=== PATIENT | female | born 1985 | race Caucasian/White ===

== ENCOUNTER → 2021-05-21 | Outpatient (CLI) | payer OTHER ==
[~2021-05-21] MED LIST: COMPAZINE10 MG PO; COZAAR 50MG TAB50 MG PO; LEVOTHYROXINE100 MCG PO; LEVOTHYROXINE112 MCG PO; LEVOXYL112 MCG PO; LOSARTAN POTASS25 MG PO; TOPAMAX25 MG PO; TOPAMAX50 MG PO; TOPROL XL50 MG PO; VERAPAMIL ER240 MG PO
[2021-05-21 12:04] LABS: HEMOGLOBIN 13.2 gm/dl (12.3-15.3); RED BLOOD COUNT 4.89 M/UL (4.00-5.10); WHITE BLOOD COUNT 7.4 K/UL (4.5-11.0)
[2021-05-21 12:28] LABS: BUN/CREATININE RATIO 11 (0-10)
== END ==
LOC: US 11:23
PROVIDERS: Psychiatry & Neurology Neurology
DX: E89.0 Postprocedural hypothyroidism (principal); R13.10 Dysphagia, unspecified; Z90.89 Acquired absence of other organs; E04.2 Nontoxic multinodular goiter
CPT/HCPCS: 36415; 76536; 80053; 84443; 85025